=== PATIENT | female | born 1990 | race American Indian/Alaskan Native ===

== ENCOUNTER 2017-08-24 16:26 | Emergency (ER) | payer SELFPAY | END 2017-08-24 16:59 | disposition left against medical advice (07) | LOC: ED 16:26 | DX: R10.9 Unspecified abdominal pain (principal); Z53.21 Procedure and treatment not carried out due to patient leaving prior to being seen by health care provider ==

== ENCOUNTER 2017-08-28 11:42 | Emergency (ER) | payer MEDICAID ==
[2017-08-28 13:37] LABS: Bilirubin,Urine NEG (Negative); Blood,Urine NEG (Negative); Color,Urine Yellow (Yellow); Mucus,Urine FEW /HPF; Urobilinogen,Urine < 2.0 mg/dL (<2.0)
[2017-08-28 13:38] LABS: WBC,Urine > 182.0 /HPF (0.0-6.0)
[2017-08-28 13:39] LABS: HCG Qualitative,Urine Negative (Negative)
[2017-08-28] MEDS ORDERED: MACROBID PO ONE (14:47)
[2017-08-28] MEDS ORDERED: BACTRIM DS PO ONE (14:50)
[2017-08-28] MEDS ORDERED: TORADOL IM ONE (14:50)
--- NOTE | 2017-08-28 15:47 | Emergency Department Report ---
ED Female HPI - General Chief complaint: Urogenital-Female Stated complaint: ABDOMINAL PAIN Time Seen by Provider: 08/28/17 14:47 Source: patient Mode of arrival: Ambulatory Limitations: No Limitations - History of Present Illness Initial comments: 27-year-old female with no past medical history presents to the hospital complaining of UTI symptoms. For 1 week she has had dysuria, frequency or pelvic pain and has been spreading from her lower abdomen and into her bilateral flanks. She started to have chills without documented fever. She denies nausea, vomiting, or vaginal discharge. She has been using Azo without relief. Pain is moderate, constant, worse with palpation and movement without alleviating factors - Related Data Previous Rx's Medication Instructions Recorded Last Taken Type Ibuprofen [Motrin] 800 mg PO Q8HR PRN #30 tablet 08/28/17 Unknown Rx Ondansetron [Zofran Odt] 4 mg PO Q8HR PRN #20 tab.rapdis 08/28/17 Unknown Rx Sulfamethoxazole/Trimethoprim 1 each PO BID #28 tablet 08/28/17 Unknown Rx [Bactrim DS TAB] traMADol [Ultram 50 MG tab] 50 mg PO Q6HR PRN #20 tablet 08/28/17 Unknown Rx Allergies Allergy/AdvReac Type Severity Reaction Status Date / Time No Known Allergies Allergy Unverified 08/28/17 12:29 ED Review of Systems ROS: Stated complaint: ABDOMINAL PAIN Other details as noted in HPI Comment: All other systems reviewed and negative ED Past Medical Hx - Past Medical History Previous Medical History?: No - Surgical History Past Surgical History?: No - Social History Smoking Status: Never Smoker Substance Use Type: None, Marijuana - Medications Home Medications: Home Medications Medication Instructions Recorded Confirmed Last Taken Type Ibuprofen [Motrin] 800 mg PO Q8HR PRN #30 tablet 08/28/17 Unknown Rx Ondansetron [Zofran Odt] 4 mg PO Q8HR PRN #20 tab.rapdis 08/28/17 Unknown Rx Sulfamethoxazole/Trimethoprim 1 each PO BID #28 tablet 08/28/17 Unknown Rx [Bactrim DS TAB] traMADol [Ultram 50 MG tab] 50 mg PO Q6HR PRN #20 tablet 08/28/17 Unknown Rx ED Physical Exam - General Limitations: No Limitations - Other Other exam information: General: No limitations, patient is alert in no acute distress Head exam: Atraumatic, normocephalic Eyes exam: Normal appearance ENT: Moist mucous membrane, normal oropharynx Neck exam: Normal inspection, full range of motion, no meningismus nontender Respiratory exam: Clear to auscultation bilateral, no wheezes, rales, crackles Cardiovascular: Normal rate and rhythm, normal heart sounds Abdomen: Soft, nondistended, pelvic tenderness, with normal bowel sounds, no rebound, or guarding Extremity: Full range of motion normal inspection no deformity Back: Normal Inspection, full range of motion, bilateral CVA tenderness Neurologic: Alert, oriented x3, cranial nerves intact, no motor or sensory deficit Psychiatric: normal affect, normal mood Skin: Warm, dry, intact ED Course Vital Signs 08/28/17 12:26 Temperature 99.5 F Pulse Rate 91 H Blood Pressure 118/74 O2 Sat by Pulse 100 Oximetry ED Medical Decision Making - Medical Decision Making UTI with symptoms of early pyelonephritis non toxic appearing Tolerating by mouth Treated with Bactrim and Toradol in the ED Discharge treatment and follow-up - Differential Diagnosis UTI, PID, cervicitis, pyelonephritis Critical Care Time: No Critical care attestation.: If time is entered above; I have spent that time in minutes in the direct care of this critically ill patient, excluding procedure time. ED Disposition Clinical Impression: UTI (urinary tract infection), Pyelonephritis Disposition: TO HOME OR SELFCARE Is pt being admited?: No Does the pt Need Aspirin: No Condition: Stable Instructions: Urinary Tract Infection in Women (ED), Acute Pyelonephritis (ED) Additional Instructions: Take the medications as prescribed and take the antibiotics until completion. Return if symptoms worsen as indicated by your discharge instructions. Otherwise , follow up with the resources provided or with the doctor of your choice. Prescriptions: Ibuprofen [Motrin] 800 mg PO Q8HR PRN #30 tablet PRN Reason: Pain Ondansetron [Zofran Odt] 4 mg PO Q8HR PRN #20 tab.rapdis PRN Reason: Nausea And Vomiting Sulfamethoxazole/Trimethoprim [Bactrim DS TAB] 1 each PO BID #28 tablet traMADol [Ultram 50 MG tab] 50 mg PO Q6HR PRN #20 tablet PRN Reason: Pain Referrals: PRIMARY CARE, [Primary Care Provider] - 3-5 Days [facility] [Provider Group] - 3-5 Days CHARLEE ALTAMIRANO MD [Staff Physician] - 3-5 Days Time of Disposition: 15:48
[2017-08-28 15:57] VITALS: BP 107/69
== END 2017-08-28 15:57 | disposition home or self-care (01) ==
LOC: ED 11:42
DX: N39.0 Urinary tract infection, site not specified (principal); N12 Tubulo-interstitial nephritis, not specified as acute or chronic; F12.10 Cannabis abuse, uncomplicated
CPT/HCPCS: 81001; 81025; 87076; 87086; 87186; 96372; 99283; J1885